=== PATIENT | male | born 1980 | race Caucasian/White ===

== ENCOUNTER 2016-09-22 00:10 | Emergency (ER) | payer OTHER ==
[~2016-09-22] VITALS: Ht 165.1 cm; Wt 68.5 kg
--- NOTE | 2016-09-22 00:24 | NUR ---
To bed 36 yo male bibself with c/o of swollen left hand. Per patient his left hand got hit by a metal tool while fixing his car yesterday noon. Noted patient with nonpitting edema on left hand, redness noted, patient able to move fingers with ease, denies pain/numbness, cap refill <3secs. Awaiting for er md pettit.
[2016-09-22] MEDS ORDERED: TDAP [DIPH/PERTUSSIS/TET] 0.5 ML VIAL IM ONE ×2 (00:26→00:30)
--- NOTE | 2016-09-22 00:26 | NUR ---
Dr Pichardo at bedside.
--- NOTE | 2016-09-22 00:33 | NUR ---
TDAP given on the right deltoid IM, dejah well by patient.
--- NOTE | 2016-09-22 00:45 | NUR ---
xr tech at bedside.
--- NOTE | 2016-09-22 01:49 | NUR ---
Patient not seen in bed. Check surrounding and waiting room, patient not found.
[2016-09-22 02:29] VITALS: BP 144/71
== END 2016-09-22 01:49 | disposition left against medical advice (07) ==
LOC: ER 00:16
DX: L03.114 Cellulitis of left upper limb (principal)
CPT/HCPCS: 73130; 90471; 90715; 99284; A4606; Z7610

== ENCOUNTER 2017-03-17 09:17 | Emergency (ER) | payer OTHER ==
[~2017-03-17] VITALS: Ht 170.2 cm; Wt 54.4 kg
[2017-03-17 09:17] VITALS: BP 105/69
== END 2017-03-17 09:32 ==
LOC: ER 09:20
DX: R42 Dizziness and giddiness (principal); F17.200 Nicotine dependence, unspecified, uncomplicated
CPT/HCPCS: 82962; 93005; 99283; A4606; Z7610

== ENCOUNTER 2019-07-29 12:22 | Emergency (ER) | payer OTHER ==
[~2019-07-29] VITALS: Ht 177.8 cm; Wt 68.0 kg
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
[2019-07-29] MEDS ORDERED: ONDANSETRON 4 MG TAB.RAPDIS ONE (12:42)
[2019-07-29 12:50] LABS: BASOPHILS % (AUTO) 0.6 % (0.0-2.0); EOSINOPHILS % (AUTO) 2.2 % (0.0-6.0); HEMATOCRIT 44 % (39-51); HEMOGLOBIN 14.7 g/dL (13.5-17.5); LYMPHOCYTES % (AUTO) 16.4 % (20.0-44.0); MEAN CORPUSCULAR HGB CONC 34 g/dl (31.0-36.0); MEAN CORPUSCULAR VOLUME 92 fL (80-96); MONOCYTES # (AUTO) 0.5 /CMM (0.1-1.30); MONOCYTES % (AUTO) 8.4 % (2.0-12.0); NEUTROPHILS # (AUTO) 4.5 /CMM (1.8-8.9); NEUTROPHILS % (AUTO) 72.4 % (43.0-81.0); PLATELET COUNT (AUTO) 170 /CMM (150-450); RED BLOOD CELL COUNT(AUTO) 4.73 MIL/uL (4.5-6.0); WHITE BLOOD COUNT (AUTO) 6.2 K/uL (4.3-11.0)
[2019-07-29] MEDS ORDERED: ONDANSETRON 4 MG TAB.RAPDIS PO ONE (13:00)
[2019-07-29 13:03] LABS: ALBUMIN 3.9 g/dL (3.4-5.0); BILIRUBIN,DIRECT 0.1 mg/dL (0.0-0.2); BILIRUBIN,TOTAL 0.3 mg/dL (0.2-1.0); CREATININE 0.8 mg/dL (0.6-1.3); POTASSIUM 4.6 mmol/L (3.5-5.1); TOTAL PROTEIN, SERUM 7.4 g/dL (6.4-8.2)
[2019-07-29] MEDS ORDERED: IV NS 0.9% 1,000 ML BAG IV ONE (13:30)
--- NOTE | 2019-07-29 14:37 | NUR ---
IV removed. Catheter intact and site benign. Pressure and 4x4 applied to site. No bleeding noted. Patient discharged in custody in stable condition. Written and verbal after care instructions given.
[2019-07-29 15:06] VITALS: BP 142/78
== END 2019-07-29 14:37 ==
LOC: ER 12:27
DX: F11.23 Opioid dependence with withdrawal (principal); F19.10 Other psychoactive substance abuse, uncomplicated; R11.2 Nausea with vomiting, unspecified; F10.10 Alcohol abuse, uncomplicated; F17.200 Nicotine dependence, unspecified, uncomplicated; Y90.9 Presence of alcohol in blood, level not specified; Z02.89 Encounter for other administrative examinations
CPT/HCPCS: 36415; 80048; 80076; 83690; 85025; 96360; 99283; J7030; Q0162

== ENCOUNTER 2020-09-20 19:41 | Emergency (ER) | payer OTHER ==
[~2020-09-20] VITALS: Ht 177.8 cm; Wt 68.0 kg
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
[2020-09-20 20:22] LABS: BASOPHILS % (AUTO) 0.8 % (0.0-2.0); EOSINOPHILS % (AUTO) 3.1 % (0.0-6.0); HEMATOCRIT 42 % (39-51); HEMOGLOBIN 13.6 g/dL (13.5-17.5); LYMPHOCYTES # (AUTO) 1.1 /CMM (0.8-4.8); LYMPHOCYTES % (AUTO) 17.7 % (20.0-44.0); MEAN CORPUSCULAR HGB CONC 33 g/dl (31.0-36.0); MEAN CORPUSCULAR VOLUME 87 fL (80-96); MONOCYTES # (AUTO) 0.5 /CMM (0.1-1.30); MONOCYTES % (AUTO) 8.5 % (2.0-12.0); NEUTROPHILS # (AUTO) 4.3 /CMM (1.8-8.9); NEUTROPHILS % (AUTO) 69.9 % (43.0-81.0); RED BLOOD CELL COUNT(AUTO) 4.77 MIL/uL (4.5-6.0); WHITE BLOOD COUNT (AUTO) 6.1 K/uL (4.3-11.0)
[2020-09-20 21:03] LABS: PLATELET COUNT (AUTO) 169 /CMM (150-450)
[2020-09-20 21:07] LABS: ALANINE AMINOTRANSFERASE 16 U/L (12-78); ALBUMIN 3.7 g/dL (3.4-5.0); ALKALINE PHOSPHATASE 120 U/L (46-116); ASPARTATE AMINOTRANSFERASE 37 U/L (15-37); BILIRUBIN,TOTAL 0.4 mg/dL (0.2-1.0); CARBON DIOXIDE 27 mmol/L (21-32); CHLORIDE 103 mmol/L (98-107); CREATININE 0.8 mg/dL (0.6-1.3); GLUCOSE 106 mg/dL (74-106); POTASSIUM 5.9 mmol/L (3.5-5.1); SODIUM SERUM 138 mmol/L (136-145); TOTAL PROTEIN, SERUM 7.6 g/dL (6.4-8.2); UREA NITROGEN, BLOOD 19 mg/dL (7-18)
--- NOTE | 2020-09-20 21:40 | NUR ---
POTASSIUM 5.9. [facility] IS MADE AWARE. NO NEW ORDER AT THIS TIME.
[2020-09-20 21:57] LABS: ALCOHOL, BLOOD < 3 mg/dL (0-0)
[2020-09-20 22:01] LABS: ACETAMINOPHEN 0 ug/ml (10-30)
--- NOTE | 2020-09-20 22:06 | NUR ---
COVID SWAB DONE AND TAKEN IT TO THE LAB.
[2020-09-20 22:24] LABS: MAGNESIUM 2.4 mg/dL (1.8-2.4); POTASSIUM 4.5 mmol/L (3.5-5.1)
--- NOTE | 2020-09-20 22:47 | NUR ---
CALL FROM LAB. RAPID COVID NEGATIVE.
--- NOTE | 2020-09-21 06:00 | NUR ---
PT REFUSING TO LEAVE, SECURITY CALLED. PT DEMANDING FOR THE ADDRESS WHERE HE WAS PICKED UP. PROVIDED FROM [employer] BUT PATIENT STILL REFUSES TO LEAVE. PER SECURITY STAFF, THEY WILL CALL [employer].
[2020-09-21 08:25] VITALS: BP 127/84
--- NOTE | 2020-09-21 08:25 | NUR ---
Patient given written and verbal discharge instructions. Patient verbalizes understanding of instructions. Patient is ambulatory with steady gait. Refuses offer of senior living placement. Patient given list of available shelters in surrounding area.
== END 2020-09-21 08:28 | disposition left against medical advice (07) ==
LOC: ER 19:46
DX: R41.82 Altered mental status, unspecified (principal); F19.10 Other psychoactive substance abuse, uncomplicated; I47.1 Supraventricular tachycardia; R91.8 Other nonspecific abnormal finding of lung field; Z20.822 Contact with and (suspected) exposure to COVID-19; E87.5 Hyperkalemia; R60.0 Localized edema
CPT/HCPCS: 36415; 70450; 71045; 80048; 80076; 80299; 80320; 83735; 84132; 84484; 85025; 87426; 93005; 99285; C9803; G0480

== ENCOUNTER 2021-09-28 13:58 | Emergency (ER) | payer OTHER ==
[~2021-09-28] VITALS: Ht 170.2 cm; Wt 77.1 kg
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
--- NOTE | 2021-09-28 14:25 | NUR ---
SEEN BY ER MD AT BEDSIDE
[2021-09-28] MEDS ORDERED: HYDROCODONE/APAP 5/325MG TABLET PO ONE (14:30)
--- NOTE | 2021-09-28 14:30 | NUR ---
BROUGHT TO RAD DEPARTMENT FOR CT SCAN OF RIGHT ROSY AND XRAY OF RIGHT ANKLE.
--- NOTE | 2021-09-28 14:45 | NUR ---
METER INSTALLER AND REMOVER AT BEDSIDE
[2021-09-28] MEDS ORDERED: HYDROCODONE/APAP 5/325MG TABLET ONE (14:53)
[2021-09-28 15:08] LABS: BASOPHILS % (AUTO) 0.4 % (0.0-2.0); EOSINOPHILS % (AUTO) 1.1 % (0.0-6.0); HEMATOCRIT 46 % (39-51); HEMOGLOBIN 15.1 g/dL (13.5-17.5); LYMPHOCYTES # (AUTO) 1.3 K/uL (0.8-4.8); LYMPHOCYTES % (AUTO) 16.4 % (20.0-44.0); MEAN CORPUSCULAR HGB CONC 33 g/dl (31.0-36.0); MEAN CORPUSCULAR VOLUME 87 fL (80-96); MONOCYTES # (AUTO) 0.4 K/uL (0.1-1.30); MONOCYTES % (AUTO) 5.5 % (2.0-12.0); NEUTROPHILS % (AUTO) 76.6 % (43.0-81.0); PLATELET COUNT (AUTO) 164 K/uL (150-450); RED BLOOD CELL COUNT(AUTO) 5.25 MIL/uL (4.5-6.0); WHITE BLOOD COUNT (AUTO) 7.8 K/uL (4.3-11.0)
[2021-09-28 15:19] LABS: CALCIUM, SERUM 9.1 mg/dL (8.5-10.1); CREATININE 0.8 mg/dL (0.6-1.3); POTASSIUM 4.1 mmol/L (3.5-5.1)
[2021-09-28] MEDS ORDERED: CEPH500C2 PO (16:16)
--- NOTE | 2021-09-28 16:59 | NUR ---
Patient discharged to home in stable condition. Written and verbal after care instructions given. Patient verbalizes understanding of instruction.
[2021-09-28 17:00] VITALS: BP 134/81
== END 2021-09-28 17:01 ==
LOC: ER 14:02
DX: L97.919 Non-pressure chronic ulcer of unspecified part of right lower leg with unspecified severity (principal); F17.200 Nicotine dependence, unspecified, uncomplicated
CPT/HCPCS: 36415; 73610-TC; 80048-TC; 85025-TC; 85652-TC; 86140-TC

== ENCOUNTER 2021-11-06 21:55 | Emergency (ER) | payer OTHER ==
[~2021-11-06] VITALS: Ht 172.7 cm; Wt 77.1 kg
[~2021-11-06 21:55] MED LIST: CEPH500C2 PO
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
--- NOTE | 2021-11-06 22:52 | NUR ---
IV LINE ESTABLISHED , R FOREARM 18G. BLOOD COLLECTED AND SENT TO LAB
--- NOTE | 2021-11-06 22:52 | NUR ---
COVID ANTIGEN SWAB COLLECTED
[2021-11-06] MEDS ORDERED: VANCOMYCIN 1 GM VIAL ONE (22:55)
[2021-11-06 23:00] LABS: BASOPHILS % (AUTO) 0.8 % (0.0-2.0); EOSINOPHILS % (AUTO) 2.1 % (0.0-6.0); HEMATOCRIT 40 % (39-51); HEMOGLOBIN 13.7 g/dL (13.5-17.5); LYMPHOCYTES # (AUTO) 1.6 K/uL (0.8-4.8); LYMPHOCYTES % (AUTO) 31.6 % (20.0-44.0); MEAN CORPUSCULAR HGB CONC 34 g/dl (31.0-36.0); MEAN CORPUSCULAR VOLUME 89 fL (80-96); MONOCYTES # (AUTO) 0.4 K/uL (0.1-1.30); MONOCYTES % (AUTO) 7.5 % (2.0-12.0); PLATELET COUNT (AUTO) 197 K/uL (150-450); RED BLOOD CELL COUNT(AUTO) 4.53 MIL/uL (4.5-6.0); WHITE BLOOD COUNT (AUTO) 5.1 K/uL (4.3-11.0)
[2021-11-06] MEDS ORDERED: IV NS 0.9% 1,000 ML BAG IV ONE (23:00)
[2021-11-06] MEDS ORDERED: VANCOMYCIN 1 GM in IV D5W 250 ML IV ONE (23:00)
[2021-11-06 23:08] LABS: CALCIUM, SERUM 8.3 mg/dL (8.5-10.1); CARBON DIOXIDE 29 mmol/L (21-32); CHLORIDE 106 mmol/L (98-107); CREATININE 0.9 mg/dL (0.6-1.3); GLUCOSE 104 mg/dL (74-106); POTASSIUM 3.5 mmol/L (3.5-5.1); SODIUM SERUM 144 mmol/L (136-145); UREA NITROGEN, BLOOD 13 mg/dL (7-18)
[2021-11-06 23:23] LABS: ALANINE AMINOTRANSFERASE 21 U/L (12-78); ALBUMIN 3.8 g/dL (3.4-5.0); ALKALINE PHOSPHATASE 117 U/L (46-116); ASPARTATE AMINOTRANSFERASE 14 U/L (15-37); BILIRUBIN,DIRECT 0.1 mg/dL (0.0-0.2); BILIRUBIN,TOTAL 0.3 mg/dL (0.2-1.0); LIPASE 87 U/L (73-393); TOTAL PROTEIN, SERUM 7.4 g/dL (6.4-8.2)
--- NOTE | 2021-11-06 23:49 | NUR ---
PT UNABLE TO PROVIDE URINE AT THIS TIME, URINAL PROVIDED
--- NOTE | 2021-11-07 | NUR ---
DR. RAGLAND ON THE PHONE WITH DR. KOLB
--- NOTE | 2021-11-07 01:00 | NUR ---
[facility] ETA @ [id number]
--- NOTE | 2021-11-07 01:34 | NUR ---
PT IS STILL UNABLE TO PROVIDE URINE
--- NOTE | 2021-11-07 03:19 | NUR ---
PT RESTING COMFORTABLY IN BED, DENIES ANY PAIN AT THIS TIME. WILL CONTINUE TO MONITOR.
[2021-11-07 03:21] VITALS: BP 135/80
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
--- NOTE | 2021-11-07 04:47 | NUR ---
PT RETURNED TO WAITING ROOM ASKING FOR IV LINE TO BE REMOVED.
--- NOTE | 2021-11-07 04:48 | NUR ---
IV removed. Catheter intact and site benign. Pressure and 4x4 applied to site. No bleeding noted.
== END 2021-11-07 05:00 | disposition left against medical advice (07) ==
LOC: ER 22:25
DX: T86.822 Skin graft (allograft) (autograft) infection (principal); L03.115 Cellulitis of right lower limb; Z53.20 Procedure and treatment not carried out because of patient's decision for unspecified reasons; R03.0 Elevated blood-pressure reading, without diagnosis of hypertension; Z20.822 Contact with and (suspected) exposure to COVID-19
CPT/HCPCS: 36415 ×2; 80048; 80076; 83605 ×2; 83690; 85025; 85730; 87040 ×2; 87426; 96365; 99284; C9803; J3370; J7030